=== PATIENT | male | born 1995 | race Caucasian/White ===

== ENCOUNTER → 2024-08-02 | Outpatient (CLI) | payer OTHER, SELFPAY ==
--- NOTE | 2024-08-02 11:00 | DI.MRI.S_ITS ---
PROCEDURE: MR THORACIC SPINE WO CON INDICATIONS: LUMBAR RADICULOPATHY,THORACIC SPONDYLOSIS TECHNIQUE: Noncontrast sagittal T1 spine echo and T2 fast spin echo, sagittal STIR, and T2 fast spin echo through the thoracic spine. COMPARISON: None. FINDINGS: Image quality: Excellent Localizer image: Unremarkable Alignment of thoracic spine is anatomic. Vertebral body height of the thoracic spine are well maintained. Mild fibrovascular end plate change at C6-7. Mild marrow edema at the right aspect of C7, about the right costovertebral articulation, favoring degenerative (series 8, image 5). Mild fibrovascular end plate change at T11-T12. No suspicious marrow replacing lesion. Multilevel disc desiccation and disc bulge. Core signal: Unremarkable Central canal stenosis: Mild at T7-8, secondary to disc bulge. Right neural foraminal stenosis: None. Left neural from stenosis: None. Other soft tissue findings: Visualized thoracic aorta is unremarkable. IMPRESSION: Multilevel degenerative changes of the lumbar spine, with mild central canal stenosis at T7-8. Dictated by: Riri Boykin M.D. on 08/02/2024 at 12:45 Approved by: Riri Boykin M.D. on 08/02/2024 at 12:54
--- NOTE | 2024-08-02 11:00 | DI.MRI.S_ITS ---
PROCEDURE: MR LUMBAR SPINE WO CON INDICATIONS: LUMBAR RADICULOPATHY,THORACIC SPONDYLOSIS TECHNIQUE: Noncontrast sagittal T1 spin echo and T2 fast echo, sagittal STIR, and T2 fast spin echo through the lumbar spine. In cases with scoliosis, additional coronal T2 fast spin echo may be performed. COMPARISON: None. FINDINGS: Image quality: Excellent Localizer image: Unremarkable Alignment of the lumbar spine is anatomic. Vertebral body height of the lumbar spine are well maintained. Mild fibrovascular end plate change at T11-T12. Marrow signal of the lumbar spine is normal for age. Multilevel disc bulge. Conus terminates at the level of T12-L1, and is unremarkable. Right neural foraminal stenosis: Mild at L4-5. Left neural from stenosis: Mild at L3-4, L4-5.. Axial images: T12-L1: No central canal stenosis. L1-2: No central canal stenosis. L2-3: No central canal stenosis. L3-4: Mild bilateral facet arthropathy. No central canal stenosis. L4-5: Mild disc bulge. Mild bilateral facet arthropathy. No central canal stenosis. L5-S1: Mild disc bulge. Mild bilateral facet arthropathy. No central canal stenosis. Visualized sacrum is intact. No abdominal aortic aneurysm. IMPRESSION: 1. Minimal degenerative changes of the lumbar spine, most pronounced at L4-5, where there is mild bilateral neural foraminal stenosis. 2. No central canal stenosis in the lumbar spine. Dictated by: Riri Boykin M.D. on 08/02/2024 at 12:54 Approved by: Riri Boykin M.D. on 08/02/2024 at 13:00
== END ==
PROVIDERS: Referring Provider Physical Medicine & Rehabilitation; Visit Provider Physical Medicine & Rehabilitation
DX: M54.16 Radiculopathy, lumbar region (principal); M48.061 Spinal stenosis, lumbar region without neurogenic claudication; M47.814 Spondylosis without myelopathy or radiculopathy, thoracic region; M48.04 Spinal stenosis, thoracic region; M51.34 Other intervertebral disc degeneration, thoracic region
CPT/HCPCS: 72146; 72148

== ENCOUNTER → 2025-09-21 10:35 | Outpatient (CLI) | payer OTHER, SELFPAY ==
--- NOTE | 2025-09-21 10:36 | DI.MRI.S_ITS ---
PROCEDURE: MR CERVICAL SPINE WO CON
== END ==
LOC: MRI 10:36
DX: G54.2 Cervical root disorders, not elsewhere classified (principal)
CPT/HCPCS: 72141

== ENCOUNTER → 2025-10-02 08:20 | Outpatient (CLI) | payer OTHER, SELFPAY ==
--- NOTE | 2025-10-02 08:22 | DI.MRI.S_ITS ---
PROCEDURE: MR PELIS WO/W CON INDICATIONS: Other spondylosis, site unspecified TECHNIQUE: Noncontrast axial and oblique coronal T1 spin echo and STIR through the sacroiliac joints. COMPARISON: None. FINDINGS: Image quality: Diagnostic. The patient was initially scanned on a a body pelvic MRI protocol on 10/02/2025. Subsequent sacroiliac specific musculoskeletal protocol imaging was obtained on 10/11/2025. Bones: Sub chondral, periarticular, fatty metaplasia about the bilateral sacroiliac joints with periarticular erosions. Fatty metaplasia is concerning for prior bilateral sacroiliac joint inflammation. Subchondral enhancement concerning for active inflammation of the bilateral sacroiliac joints is seen on the body protocol postcontrast axial series 20. No fracture. No suspicious marrow replacing process. Soft tissues: No presacral masses. Rectum appears normal in caliber and wall thickness. No pathologic free pelvic fluid. IMPRESSION: Findings of bilateral active, acute on chronic, sacroiliitis with subchondral bone marrow edema and periarticular erosions within the bilateral sacroiliac joints. Dictated by: Jose Ramon Leon M.D. on 10/11/2025 at 18:59 Approved by: Jose Ramon Leon M.D. on 10/11/2025 at 19:03
== END ==
LOC: MRI 08:21
PROVIDERS: Referring Provider Physician Assistant; Visit Provider Physician Assistant
DX: M46.1 Sacroiliitis, not elsewhere classified (principal); M47.899 Other spondylosis, site unspecified; R79.82 Elevated C-reactive protein (CRP)
CPT/HCPCS: 72197; A9579

== ENCOUNTER → 2025-10-30 09:23 | Outpatient (CLI) | payer OTHER, SELFPAY | LOC: PHYS 09:23 | DX: G54.2 Cervical root disorders, not elsewhere classified (principal) | CPT/HCPCS: 95886; 95909 ==